=== PATIENT | female | born 1990 | race Caucasian/White ===

== ENCOUNTER 2021-12-28 04:35 | Emergency (ER) | payer MEDICAID ==
[~2021-12-28] VITALS: Ht 162.6 cm; Wt 60.1 kg
[2021-12-28] MEDS ORDERED: FAMOTIDINE 20MG/2ML VIAL IV ONE (05:15)
[2021-12-28] MEDS ORDERED: METHYLPREDNISOLONE SOD SUCC 125 MG/2 ML VIAL IV ONE (05:15)
[2021-12-28] MEDS ORDERED: DIPHENHYDRAMINE 50MG/ML VIAL IV ONE (05:15)
[2021-12-28] MEDS ORDERED: P50 MT (06:41)
[2021-12-28] MEDS ORDERED: DIPH25CA83 PO (06:41)
[2021-12-28] MEDS ORDERED: DIPHENHYDRAMINE 50MG CAPSULE PO ONE (06:45)
[2021-12-28] MEDS ORDERED: PREDNISONE 20MG TABLET PO ONE (06:45)
[2021-12-28 07:00] VITALS: BP 123/74
== END 2021-12-28 07:14 | disposition home or self-care (01) ==
LOC: ER 04:35
DX: L50.0 Allergic urticaria (principal)
CPT/HCPCS: 99283; J7512; J1200; J2930; Q0163

== ENCOUNTER 2024-01-19 22:26 | Emergency (ER) | payer MEDICAID, OTHER ==
[~2024-01-19] VITALS: Ht 165.1 cm; Wt 59.0 kg
[~2024-01-19 22:26] MED LIST: DIPH25CA83 PO; P50 MT
[2024-01-19 22:36] VITALS: O2SAT 98
[2024-01-19 23:45] VITALS: BP 98/47; PULSE 75; RESP 18; TEMP 98.3
== END 2024-01-19 23:48 | disposition home or self-care (01) ==
LOC: ER 22:26
DX: S09.90XA Unspecified injury of head, initial encounter (principal); W18.30XA Fall on same level, unspecified, initial encounter; Y93.89 Activity, other specified; Y92.89 Other specified places as the place of occurrence of the external cause; Y99.8 Other external cause status
CPT/HCPCS: 99281